=== PATIENT | female | born 1980 | race Caucasian/White ===

== ENCOUNTER 2018-01-06 06:13 | Inpatient (IN) ==
[2018-01-06] MEDS ORDERED: D5 1/2 NS 1000 ML 1,000 ML IV ONE ×2 (06:20→09:24)
[2018-01-06] MEDS ORDERED: ANCEF 1 GRAM IV PREMIX* 1 G/50 ML BAG IV ONE (06:20)
[2018-01-06] MEDS ORDERED: D5 1/2 NS 1000 ML 1,000 ML IV SCH (06:41)
[2018-01-06] MEDS ORDERED: ANCEF VIAL 1 GRAM IVP ONE (06:41)
[2018-01-06] MEDS ORDERED: FENTANYL INJ 250 mcg ONE (07:14)
[2018-01-06] MEDS: DILAUDID INJ ONE ×4 (07:18→09:43)
[2018-01-06] MEDS ORDERED: DILAUDID INJ ONE ×3 (09:07→09:27)
[2018-01-06] MEDS: DILAUDID INJ IVP PRN ×4 (09:08→09:23)
[2018-01-06] MEDS ORDERED: PHENERGAN INJ 25 MG IVP PRN (09:09)
[2018-01-06] MEDS ORDERED: ZOFRAN INJ 4 MG VIAL IVP PRN ×2 (09:09→09:35)
[2018-01-06] MEDS ORDERED: REGLAN INJ 10 MG VIAL IVP PRN (09:09)
[2018-01-06] MEDS ORDERED: BENADRYL INJ 50 MG VIAL IVP PRN (09:09)
[2018-01-06] MEDS ORDERED: PHENERGAN INJ 25 MG ONE (09:28)
[2018-01-06] MEDS: MORPHINE SULFATE PCA 30 MG IVP PRN ×2 (10:13→17:05)
[2018-01-06] MEDS: D5 1/2 NS 1000 ML 1,000 ML IV SCH ×2 (10:19→17:06)
[2018-01-06] MEDS: BENADRYL INJ 50 MG VIAL IVP PRN ×2 (11:05→22:10)
[2018-01-06] MEDS: TORADOL 30 MG VIAL IVP PRN ×2 (13:39→22:09)
[2018-01-06] MEDS ORDERED: ROBINUL ONE (15:28)
[2018-01-06] MEDS ORDERED: NEOSTIGMINE INJ ONE (15:29)
[2018-01-06] MEDS ORDERED: VERSED ONE (15:55)
[2018-01-06] MEDS ORDERED: ZOFRAN INJ 4 MG VIAL ONE (15:55)
[2018-01-06] MEDS ORDERED: NORCURON INJ 10 MG VIAL ONE (15:55)
[2018-01-06] MEDS ORDERED: QUELICIN (OR ANECTINE) ONE (15:55)
[2018-01-06] MEDS ORDERED: SUPRANE IN ONE (15:55)
[2018-01-06] MEDS ORDERED: DIPRIVAN VIAL ONE (15:55)
[2018-01-06] MEDS: NICOTINE PATCH TD SCH (16:14)
[2018-01-07] MEDS: D5 1/2 NS 1000 ML 1,000 ML IV SCH ×3 (02:00→18:05)
[2018-01-07] MEDS: MORPHINE SULFATE PCA 30 MG IVP PRN (04:30)
[2018-01-07 04:57] VITALS: BMI 38.7
[2018-01-07 06:09] LABS: BASOPHILS # (AUTO) 0.1 X10^3/uL (0.0-0.1); BASOPHILS % (AUTO) 0.8 % (0.2-1.0); EOSINOPHILS # (AUTO) 0.1 x10^3/uL (0.0-0.2); EOSINOPHILS % (AUTO) 1.5 % (0.9-2.9); HEMOGLOBIN 11.3 g/dL (12.0-16.0); LYMPHOCYTES # (AUTO) 3.7 X10^3/uL (1.3-2.9); LYMPHOCYTES % (AUTO) 38.7 % (21.0-51.0); MEAN CORPUSCULAR HEMOGLOBIN 30.3 pg (27.0-34.0); MEAN CORPUSCULAR HGB CONC 34.2 g/dL (33.0-35.0); MEAN CORPUSCULAR VOLUME 88.5 fL (80.0-100.0); MEAN PLATELET VOLUME 8.4 fL (7.4-11.0); MONOCYTES # (AUTO) 0.5 x10^3/uL (0.3-0.8); MONOCYTES % (AUTO) 5.1 % (0.0-13.0); NEUTROPHILS # (AUTO) 5.2 x10^3/uL (2.2-4.8); NEUTROPHILS % (AUTO) 53.9 % (42.0-75.0); PLATELET COUNT 214 X10^3/uL (150.0-450.0); RED BLOOD COUNT 3.73 X10^6/uL (3.5-5.4); RED CELL DISTRIBUTION WIDTH 13.6 % (11.6-16.5); WHITE BLOOD COUNT 9.6 X10^3/uL (3.6-10.0)
[2018-01-07 07:03] LABS: BLOOD UREA NITROGEN 6 mg/dL (7-18); CALCIUM 7.5 mg/dL (8.5-10.1); CHLORIDE 106 mmol/L (98-107); CREATININE 0.97 mg/dL (0.55-1.02); SODIUM 138 mmol/L (136-145); eGFR NON BLACK RACES > 60 (>60)
[2018-01-07] MEDS: BENADRYL INJ 50 MG VIAL IVP PRN (08:15)
[2018-01-07] MEDS: TORADOL 30 MG VIAL IVP PRN (08:15)
[2018-01-07] MEDS: NICOTINE PATCH TD SCH (08:16)
[2018-01-07] MEDS: COLACE CAP 100 MG PO SCH ×2 (11:30→21:06)
[2018-01-07] MEDS: PriLOSEC PO SCH (11:30)
[2018-01-07] MEDS: ESTRACE PO SCH (11:30)
[2018-01-07] MEDS: MYLICON TAB 80 MG CHEW PO PRN ×2 (11:30→21:06)
[2018-01-07] MEDS: BACTROBAN CREAM TOP SCH ×2 (14:54→21:07)
[2018-01-07] MEDS: MOTRIN TAB 800 MG PO PRN (16:02)
[2018-01-07] MEDS: PERCOCET TAB 5/325 MG PO PRN ×2 (16:49→21:06)
[2018-01-08] MEDS: PERCOCET TAB 5/325 MG PO PRN ×2 (01:21→05:44)
[2018-01-08] MEDS: D5 1/2 NS 1000 ML 1,000 ML IV SCH (01:22)
[2018-01-08] MEDS: MYLICON TAB 80 MG CHEW PO PRN (05:43)
[2018-01-08] MEDS: BACTROBAN CREAM TOP SCH (05:44)
[2018-01-08] MEDS: MOTRIN TAB 800 MG PO PRN (07:49)
[2018-01-08] MEDS: COLACE CAP 100 MG PO SCH (08:00)
[2018-01-08] MEDS: ESTRACE PO SCH (08:00)
[2018-01-08] MEDS: PriLOSEC PO SCH (08:00)
[2018-01-08] MEDS: NICOTINE PATCH TD SCH (08:00)
[2018-01-08 09:20] VITALS: BP 128/58
== END 2018-01-08 10:45 | disposition home or self-care (01) | DRG 743 ==
LOC: MED/SURG 06:13
PROVIDERS: ADMIT Specialist; ATTEND Specialist
DX: N94.4 Primary dysmenorrhea; R10.2 Pelvic and perineal pain; N92.5 Other specified irregular menstruation; N94.19 Other specified dyspareunia
CPT/HCPCS: 36415; 80048; 81001; 84703; 85025; 85610; 85730; 86850; 86900; 86901; A4216; A4217; A4222; J0330; J0690; J1170; J1200; J1885; J2250; J2271; J2405; J2550; J2704; J2710; J3010; J3490; S5010